=== PATIENT | male | born 1975 | race Caucasian/White ===

== ENCOUNTER → 2017-08-01 | Day surgery (SDC) | payer OTHER ==
[~2017-08-01] MED LIST: ATROPINE 0.5 MG/5 ML DISP.SYRIN. IV PRN; GLYCOPYRROLATE 1 MG/5 ML VIAL. ONE; IBUP800T19 PO; IV RINGERS SOLUTION,LACTATED 1,000 ML IV ONE; IV RINGERS SOLUTION,LACTATED 1,000 ML IV SCH; LIDOCAINE 2% PF Vial for OR 5 ML VIAL. ONE; LISI-334 PO; MIDAZOLAM HCL PF 2 MG/2 ML VIAL. IV ONE; NALOXONE 0.4 MG/ML VIAL. IV PRN; ONDANSETRON PF 4 MG/2 ML VIAL. IV PRN; PROPOFOL 10,000 MCG/ML (20ML) VIAL IV ONE; PROPOFOL 40 ML IV ONE; TRAM50TA PO
--- NOTE | 2017-08-01 08:01 | PDOC1 ---
History of Present Illness Reason for Visit: colonoscopy History of Present Illness 42-year-old male with family history of both father and mother with colon cancer. He denies any colon homes at this time no blood in the stool has never had a colonoscopy. Chief Complaint: None Allergies: Coded Allergies: No Known Drug Allergies (Unverified , 08/01/17) Past Medical History Cardiac: HTN Pulmonary: No pertinent hx GI: No pertinent hx Heme/Onc: No pertinent hx Hepatobiliary: No pertinent hx Psych: No pertinent hx Musculoskeletal: No pertinent hx Rheumatologic: No pertinent hx Infectious disease: No pertinent hx ENT: No pertinent hx Renal/: No pertinent hx Endocrine: No pertinent hx Dermatology: No pertinent hx Past Surgical History: Other (ankle fracture repair) Family History: Cancer (Colon cancer father and mother) Past Social History Smoke: No Alcohol: rare Drugs: None Review of Systems Review Of Systems Fourteen system , review of systems has been reviewed. See HPI for pertinent positives and negative responses, other thapa all other systems are negative, non pertinent or non contributory Allergies: Coded Allergies: No Known Drug Allergies (Unverified , 08/01/17) Medications Current Medications Ondansetron HCl (Zofran) 4 mg PRN Q6HRS PRN IV Nausea, 1st Choice; Start at 07:45; Stop 08/02/17 at 07:44 Atropine Sulfate (ATROPINE 0.5mg SYRINGE) 0.5 mg PRN Q2MIN PRN IV BRADYCARDIA; Start 08/01/17 at 07:45; Stop 08/02/17 at 07:44 Naloxone HCl (Narcan) 0.04 mg PRN Q2MIN PRN IV Respiratory Depression; Start at 07:45; Stop 08/02/17 at 07:44 Midazolam HCl (Versed) 2 mg 1X ONCE IV ; Start 08/01/17 at 07:45; Stop at 07:47; Status DC Midazolam HCl (Versed) 1 mg 1X ONCE IV ; Start 08/01/17 at 07:45; Stop at 07:47; Status DC Fentanyl Citrate (Fentanyl 2ml Vial) 25 mcg PRN Q5MIN PRN IV X 2 DOSES FOR PAIN ; Start 08/01/17 at 07:45; Stop 08/02/17 at 07:44 Fentanyl Citrate (Fentanyl 2ml Vial) 50 mcg PRN Q5MIN PRN IV X 2 DOSES FOR PAIN ; Start 08/01/17 at 07:45; Stop 08/02/17 at 07:44 Lactated Ringer's 1,000 ml @ 125 mls/hr Q8H IV Last administered on 08/01/17at 07:43; Start 08/01/17 at 07:35; Stop 08/01/17 at 19:34 Active Scripts Active Reported Ibuprofen 800 Mg Tablet 1 Tab PO TID Tramadol Hcl (Tramadol HCl) 50 Mg Tablet 50 Mg PO PRN Q6HRS PRN Lisinopril 20 Mg Tablet 1 Tab PO DAILY Exam Vital Signs Vital Signs Date Time Temp Pulse Resp B/P (MAP) Pulse Ox O2 Delivery O2 Flow Rate FiO2 08/01/17 07:24 98.3 100 16 126/84 (98) 94 Room Air General Appearance: Alert, Oriented X3, Cooperative, No acute distress HEENT: Atraumatic, PERRLA Respiratory: Clear to auscultation Heart: Regular rate Abdominal: Normal bowel sounds, Soft, No tenderness Extremities: No clubbing, No cyanosis, No edema Skin: No significant lesion Neuro: Normal speech Psych/Mental Status: Mental status NL Assessment/Plan Assessment/Plan Screening colonoscopy COURSE Allergies Coded Allergies Type Severity Reaction Last Updated Verified No Known Drug Allergies 08/01/17 No Current Medications Medications (Trade) Dose Ordered Sig/Michaela Route PRN Reason Start Time Stop Time Status Last Admin Dose Admin Ondansetron HCl (Zofran) 4 mg PRN Q6HRS PRN IV Nausea, 1st Choice 08/01/17 07:45 08/02/17 07:44 Atropine Sulfate (ATROPINE 0.5mg SYRINGE) 0.5 mg PRN Q2MIN PRN IV BRADYCARDIA 08/01/17 07:45 08/02/17 07:44 Naloxone HCl (Narcan) 0.04 mg PRN Q2MIN PRN IV Respiratory Depression 08/01/17 07:45 08/02/17 07:44 Midazolam HCl (Versed) 2 mg 1X ONCE IV 08/01/17 07:45 08/01/17 07:47 DC Midazolam HCl (Versed) 1 mg 1X ONCE IV 08/01/17 07:45 08/01/17 07:47 DC Fentanyl Citrate (Fentanyl 2ml Vial) 25 mcg PRN Q5MIN PRN IV X 2 DOSES FOR PAIN 08/01/17 07:45 08/02/17 07:44 Fentanyl Citrate (Fentanyl 2ml Vial) 50 mcg PRN Q5MIN PRN IV X 2 DOSES FOR PAIN 08/01/17 07:45 08/02/17 07:44 Lactated Ringer's 1,000 ml @ 125 mls/hr Q8H IV 08/01/17 07:35 08/01/17 19:34 08/01/17 07:43 Orders Procedure Category Date Status Time Vital Signs, Per [facility] 08/01/17 In Process Protocol 07:35 Pulse Oximetry: [facility] 08/01/17 In Process Standing Order 07:35 Estate Planning Counselor [facility] 08/01/17 In Process 07:35 Elevate Head Of Bed [facility] 08/01/17 In Process 07:[address] Stat [facility] 08/01/17 In Process Ekg Order 07:35 Discharge From [facility] 08/01/17 In Process Hospital 07:35 Ondansetron Pf [facility] 08/01/17 In Process (Zofran) 07:45 Atropine Sulfate [facility] 08/01/17 In Process (Atropine 0.5mg 07:45 Naloxone (Narcan) [facility] 08/01/17 In Process 07:45 Anesthesia Adult [facility] 08/01/17 In Process Pre-Op Pr 07:35 Midazolam Hcl Pf [facility] 08/01/17 Complete (Versed) 07:45 Midazolam Hcl Pf [facility] 08/01/17 Complete (Versed) 07:45 Fentanyl Pf (Fentanyl [facility] 08/01/17 In Process 2ml Vial) 07:45 Fentanyl Pf (Fentanyl [facility] 08/01/17 In Process 2ml Vial) 07:45 Vital Signs, Per [facility] 08/01/17 In Process Protocol 07:35 Pulse Ox - [facility] 08/01/17 In Process Intermittent 07:35 Iv Ringers [facility] 08/01/17 In Process Solution,Lactated (Iv 07:35 Vital Signs Date Time Temp Pulse Resp B/P (MAP) Pulse Ox O2 Delivery O2 Flow Rate FiO2 08/01/17 07:24 98.3 100 16 126/84 (98) 94 Room Air ZOYA MCARTHUR MD Aug 01, 2017 08:01
[2017-08-01 08:56] VITALS: BP 115/86
== END ==
LOC: SURG 07:02
PROVIDERS: ATTEND Surgery
DX: Z12.11 Encounter for screening for malignant neoplasm of colon (principal); I10 Essential (primary) hypertension; Z80.0 Family history of malignant neoplasm of digestive organs
CPT/HCPCS: 45378; J2704; J3490; J7120; J2001